=== PATIENT | male | born 1975 | race African-American/Black ===

== ENCOUNTER 2020-02-02 13:25 | Emergency (ER) | payer OTHER, SELFPAY ==
[2020-02-02] VITALS (15 sets, daily range): BP systolic 136–157; BP diastolic 86–111; PULSE 90–114; RESP 12–24; TEMP 36.6–36.7; O2SAT 98–100
--- NOTE | ~2020-02-02 | CT_ITS ---
EXAMINATION: CT brain wo con DATE: 02/02/2020 13:57 INDICATION: Seizure. Non-Hodgkin's lymphoma. HIV positive. TECHNIQUE: Computed tomography (CT) of the head was performed without intravenous contrast. The dose- length product was 605.33 mGy-cm. The mA was adjusted according to patient size. Iterative reconstruc tion technique was employed. COMPARISON: None FINDINGS: There is a geographic area of hypodensity in the right parietal lobe posteriorly. No ventri culomegaly or midline shift. Normal brain parenchymal volume. No acute intracranial hemorrhage. No si gnificant mass effect. Basilar cisterns are patent. Paranasal sinuses and mastoids are pneumatized. N o depressed skull fractures. IMPRESSION: 1. Geographic area of hypodensity of the right parietal lobe posteriorly. Differential diagnosis incl udes infarction, lymphoma, metastatic disease and infection. Correlation with contrast-enhanced MRI o f the brain recommended for further assessment. Reviewed, dictated and finalized at location A. IMPRESSION: 1. Geographic area of hypodensity of the right parietal lobe posteriorly. Diffe rential diagnosis includes infarction, lymphoma, metastatic disease and infecti on. Correlation with contrast-enhanced MRI of the brain recommended for further assessment.
--- NOTE | ~2020-02-02 | XR_ITS ---
XR chest 1V 02/02/2020 13:59 Indication: Seizure. Weakness. Procedure: AP view of the chest Comparison: No prior studies for comparison. Findings: Cardiomegaly. Portacatheter tip in the SVC. No focal air space disease, pulmonary edema, pl eural effusion or suspected pneumothorax. Impression: 1: No acute cardiopulmonary disease. 2: Cardiomegaly. Reviewed, dictated and finalized at location A. Impression: 1: No acute cardiopulmonary disease. 2: Cardiomegaly.
--- NOTE | 2020-02-02 13:51 | PC.NURSE ---
Awake but disoriented. Dozes off while nurse talking to him. Withdraws from pain.
[2020-02-02 13:56] LABS: Basophils Absolute Auto 0.1 K/mm3 (0.0-0.1); Basophils Percent Auto 0.7 % (0.2-1.2); Eosinophils Absolute Auto 0.3 K/mm3 (0-0.3); Hematocrit 39.9 % (42.0-52.0); Hemoglobin 12.9 g/dL (14.0-18.0); Immature Granulocyte Absolute 0.04 K/mm3 (0.00-0.031); Immature Granulocyte Percent A 0.5 % (0-0.5); Lymphocytes Absolute Auto 3.91 K/mm3 (0.9-3.2); Lymphocytes Percent Auto 45.9 % (18.3-44.2); Mean Corpuscular HGB Conc 32.3 g/dl (32-36); Mean Corpuscular Hemoglobin 30.6 pg (26-34); Mean Corpuscular Volume 94.8 fl (80-100); Mean Platelet Volume 9.7 fl (7.4-10.4); Monocytes Absolute Auto 0.8 K/mm3 (0.1-0.6); Neutrophils Absolute Auto 3.4 K/mm3 (1.3-6.7); Neutrophils Percent Auto 39.9 % (45.5-73.1); Platelet Count Result 401 k/mm3 (150-375); Red Blood Count 4.21 M/mm3 (4.6-6.20); Red Cell Distribution Width 13.5 % (11.5-14.5); White Blood Count 8.5 K/mm3 (4.5-10.0)
[2020-02-02 14:01] LABS: Add Urine Microscopic? YES; Appearance Urine Clear (Clear); Bilirubin Urine Negative (Negative); Blood Urine Negative (Negative); Color Urine Yellow (Yellow); Glucose Urine UA Negative (Negative); Ketones Urine Negative (Negative); Leukocyte Esterase Ur Negative LEU/UL (Negative); Mucus Urine Rare /lpf; Nitrate Urine Negative (Negative); Protein Urine 2+ mg/dL (Negative); Specific Grav Ur 1.016 (1.001-1.035); Urobilinogen Urine Negative mg/dL (<2.0); WBC Urine 0-3 /hpf
[2020-02-02 14:04] LABS: Ethanol < 10 mg/dL (<10)
[2020-02-02 14:05] LABS: Albumin Level 4.9 g/dL (3.5-5.1); Alkaline Phosphatase 70 U/L (38-126); Aspartate Amino Transferase 34 U/L (17-59); Bilirubin,Total 0.8 mg/dL (0.2-1.3); Blood Urea Nitrogen 14 mg/dL (9-20); Calcium 9.6 mg/dL (8.4-10.2); Carbon Dioxide 13 mmol/L (22-30); Chloride 102 mmol/L (98-107); Estimated CRCL calculation 82 ml/min; Estimated Glomerular Filt Rate > 60; Glucose 147 mg/dL (75-110); Potassium 3.2 mmol/L (3.4-5.0); Sodium 141 mmol/L (137-145)
[2020-02-02 14:09] LABS: Amphetamine Screen Urine Negative (Negative); Barbiturate Screen Urine Negative (Negative); Benzodiazepines Screen Urine Negative (Negative); Cannabinoid Screen Urine Negative (Negative); Cocaine Screen Urine Negative (Negative); Methadone Screen Urine Negative (Negative); Opiate Screen Urine Negative (Negative); Phencyclidine Screen Urine Negative (Negative)
[2020-02-02 14:19] LABS: Alanine Aminotransferase 29 U/L (4-50)
--- NOTE | 2020-02-02 14:21 | PC.NURSE ---
Awake and asking questions. Able to follow commands.
--- NOTE | 2020-02-02 14:23 | ECG_ITS ---
Measurements Intervals [place] Rate: 88 P: 64 MA: 152 QRS: 7 QRSD: 119 T: 46 QT: 385 QTc: 467 Interpretive Statements SINUS RHYTHM INTRAVENTRICULAR CONDUCTION DELAY NONSPECIFIC T-WAVE ABNORMALITY- INF/LAT LEADS BORDERLINE ECG Electronically Signed On 02-02-2020 17:30:53 CDT by Benny Aldrich D.O.
--- NOTE | 2020-02-02 14:26 | ED.SEIZURE ---
HPI - Seizure General Chief Complaint: Seizure Stated Complaint: seizure like activity History of Present Illness HPI Narrative: Patient is a 44-year-old male who presents the ER with complaints of dizziness and seizure. At noon patient contacted his significant other. He told her that he was feeling very dizzy and was seeing flashes of lights. He could also taste chemotherapy medication in his mouth. Patient has history of non-Hodgkin's lymphoma and his last chemotherapy was 4 months ago. Patient also has history of HIV for which his viral load is undetectable. Patient significant other got to the home where he was lying on the floor and felt too dizzy to walk. She called EMS. In route with EMS patient began to have a seizure that lasted 30 seconds. He was flaccid on the right side and had tonic-clonic seizure activity with eye deviation to the left. Accu-Chek was normal. Patient postictal upon arrival in the ER. History obtained from EMS and significant other. Related Data Home Medications Medication Instructions Recorded Confirmed Campus's wort 300 mg PO DAILY 02/02/20 amlodipine 10 mg PO DAILY 02/02/20 axsrgjyob-vzasdbqe-frbkdjo ala 1 tablet PO DAILY 02/02/20 [Biktarvy] losartan-hydrochlorothiazide tablet 02/02/20 spironolactone 25 mg PO DAILY 02/02/20 tramadol 50 mg PO Q6H PRN 02/02/20 Allergies Allergy/AdvReac Type Severity Reaction Status Date / Time No Known Allergies Allergy Verified 02/02/20 13:37 Review of Systems Review of Systems: ROS unobtainable: Yes unobtainable due to medical condition PMFSH Past Medical History Medical History (Updated 02/02/20 @ 16:45 by Rick Fuentes MD) HIV (human immunodeficiency virus infection) Non Hodgkin's lymphoma Surgical History Surgical History (Updated 02/02/20 @ 14:27 by Rick Fuentes MD) Port-A-Cath in place Social History Social History (Updated 02/02/20 @ 14:28 by Rick Fuentes MD) Smoking status: Never smoker Alcohol intake: never Substance use: never Exam Narrative: Exam Narrative: GENERAL: Postictal, well-nourished. HEAD: Normocephalic, atraumatic. EYES: PERRL and EOMI. ENT: Mucous membranes moist. 2 small lacerations to the tongue on the left side from biting CHEST: Clear to auscultation. No respiratory distress. HEART: Regular rate and rhythm. Normal peripheral pulses. ABDOMEN: Soft, nontender, nondistended. EXTREMITIES: Normal range of motion. No edema. SKIN: Warm, dry, no rash. NEURO: Postictal but moving extremities. Exam after patient woke up shows no upper or lower extremity drift, finger-nose testing is normal, cranial nerves II through XII intact, denies any visual field deficits, clear speech, no expressive aphasia. Fatigued and oriented x3. Course Reevaluation(s) Reevaluation #1: Discussed with Dr. Caballero at [facility] with stroke team. NIH of 1 due to blurred vision at this time. DOES NOT RECOMMEND TPA. Would like oncology contacted for potential primary admission. Does not recommend IV antibiotics or steroids at this time. Date: 02/02/20 Time: 15:14 Reevaluation #2: Discussed with oncology, they have accepted the patient, will attempt to locate a bed. Pt stable and informed of plan. Date: 02/02/20 Time: 15:21 Vital Signs Vital signs: Vital Signs Temperature 97.8 F 02/02/20 13:24 Pulse Rate 96 02/02/20 13:24 Respiratory Rate 20 02/02/20 13:24 Blood Pressure 154/111 H 02/02/20 13:24 Pulse Oximetry 100 02/02/20 13:24 Temperature 98.0 F 02/02/20 16:09 Pulse Rate 90 02/02/20 16:09 Respiratory Rate 16 02/02/20 16:09 Blood Pressure 141/96 H 02/02/20 16:09 Pulse Oximetry 99 02/02/20 16:09 MDM - Seizure Lab Data Result diagrams: 02/02/20 13:41 02/02/20 13:41 Labs: Lab Results 02/02/20 02/02/20 02/02/20 Range/Units 13:41 13:41 13:41 WBC 8.5 (4.5-10.0) K/mm3 RBC 4.21 L (4.6-6.20) M/mm3 Hgb 12.9 L (14.0-1
== END 2020-02-02 16:54 | disposition short-term general hospital (02) ==
PROVIDERS: Emergency Provider Emergency Medicine
DX: R56.9 Unspecified convulsions (principal); R93.0 Abnormal findings on diagnostic imaging of skull and head, not elsewhere classified; Z21 Asymptomatic human immunodeficiency virus [HIV] infection status; C85.90 Non-Hodgkin lymphoma, unspecified, unspecified site; Z79.899 Other long term (current) drug therapy
CPT/HCPCS: 36415; 51701; 70450; 71045; 80053; 80307; 81001; 85025; 93005; 99285